=== PATIENT | male | born 1995 | race Caucasian/White ===

== ENCOUNTER 2019-02-05 13:21 | Emergency (ER) | payer MEDICAID ==
[~2019-02-05] VITALS: Ht 177.8 cm; Wt 74.8 kg
[2019-02-05 13:28] VITALS: BP_SYST 137
[2019-02-05 14:08] VITALS: BP_SYST 132
== END 2019-02-05 14:09 | disposition home or self-care (01) ==
LOC: SED 13:21
DX: K51.90 Ulcerative colitis, unspecified, without complications (principal); R03.0 Elevated blood-pressure reading, without diagnosis of hypertension
CPT/HCPCS: 99283